=== PATIENT | male | born 1975 | race Hispanic/Latino ===

== ENCOUNTER 2017-09-13 12:22 | Emergency (ER) | payer MEDICARE ==
[2017-09-13] MEDS ORDERED: HALDOL IM PRN (13:48)
[2017-09-13] MEDS ORDERED: ATIVAN IM PRN (13:48)
[2017-09-13] MEDS ORDERED: NACL 0.9% 1000 ML 1,000 ML IV ONE (13:48)
--- NOTE | 2017-09-13 13:52 | Emergency Department Report ---
ED General Adult HPI - General Chief complaint: Medical Clearance Stated complaint: MENTAL EVAL Time Seen by Provider: 09/13/17 13:24 Source: patient, police, RN notes reviewed Mode of arrival: Ambulatory Limitations: Other (patient is disorganized and is actively psychotic) - History of Present Illness Initial comments: This is a 41-year-old male who was unknown to this provider previously, who is brought to the hospital by local Police Department for medical clearance. Patient has a history of psychiatric disease. The patient has no complaints at this time. As per Police Department, the patient was aggressive, physically combative, and had to be tased 2. The patient denies headache, neck pain, chest pain, abdominal pain, shortness of breath, urinary symptoms, he denies homicidality and suicidality, and he reports he is up-to-date with his tetanus vaccinations. The patient has no complaints at this time, and therefore indicates no radiation, no qualitative nature of symptoms, and no exacerbating or relieving factors. As per verbal report from local Police Department, the patient did not fall or hit his head. -: unknown Quality: other (per hpi) Consistency: other (per hpi) Improves with: other (per hpi) Worsens with: other (per hpi) Associated Symptoms: other (per hpi). denies: confusion, chest pain, cough, diaphoresis, fever/chills, headaches, loss of appetite, malaise, nausea/vomiting , rash, seizure, shortness of breath, syncope, weakness - Related Data Home Medications Medication Instructions Recorded Confirmed Last Taken Aspirin [Aspirin TAB] 1 PO DAILY 12/17/14 12/17/14 Unknown Previous Rx's Medication Instructions Recorded Last Taken Type Amoxicillin/K Clav Tab [Augmentin 1 tab PO Q12HR #20 tab 12/26/14 Unknown Rx 875 mg] Ibuprofen [Motrin] 600 mg PO Q8H PRN #30 tablet 12/26/14 Unknown Rx Prednisone [predniSONE 10 mg 10 mg PO .TAPER #1 tab.ds.pk 12/26/14 Unknown Rx (6-Day Pack, 21 Tabs)] Allergies Allergy/AdvReac Type Severity Reaction Status Date / Time No Known Allergies Allergy Unverified 12/26/14 12:02 ED Review of Systems ROS: Stated complaint: MENTAL EVAL Other details as noted in HPI Comment: All other systems reviewed and negative ED Past Medical Hx - Past Medical History Hx Hypertension: Yes Hx Psychiatric Treatment: Yes (PTSD) - Surgical History Additional Surgical History: L eye. tonsillectomy - Social History Smoking Status: Current Every Day Smoker Substance Use Type: Marijuana, Methamphetamines - Medications Home Medications: Home Medications Medication Instructions Recorded Confirmed Last Taken Type Aspirin [Aspirin TAB] 1 PO DAILY 12/17/14 12/17/14 Unknown History Amoxicillin/K Clav Tab [Augmentin 1 tab PO Q12HR #20 tab 12/26/14 Unknown Rx 875 mg] Ibuprofen [Motrin] 600 mg PO Q8H PRN #30 tablet 12/26/14 Unknown Rx Prednisone [predniSONE 10 mg 10 mg PO .TAPER #1 tab.ds.pk 12/26/14 Unknown Rx (6-Day Pack, 21 Tabs)] ED Physical Exam - General Limitations: Other (patient is actively psychotic) General appearance: alert, in no apparent distress - Head Head exam: Present: atraumatic, normocephalic - Eye Eye exam: Present: normal appearance, PERRL, EOMI. Absent: nystagmus - ENT ENT exam: Present: normal exam, normal orophraynx, mucous membranes moist, normal external ear exam - Neck Neck exam: Present: normal inspection. Absent: tenderness, meningismus - Respiratory Respiratory exam: Present: normal lung sounds bilaterally. Absent: respiratory distress - Cardiovascular Cardiovascular Exam: Present: normal rhythm, tachycardia, normal heart sounds. Absent: systolic murmur, diastolic murmur, rubs, gallop - GI/Abdominal GI/Abdominal exam: Present: soft, normal bowel sounds. Absent: distended, tenderness, guarding, rebound, rigid, pulsatile mass - Rectal Rectal exam: Present: deferred - Extremities Exam Extremities exam: Present: normal inspection, full ROM, normal capillary refill , other (there is no palpable cord. There is negative Homans sign. The compartments are soft. There is no clonus. It is no hyperreflexia.). Absent: tenderness, pedal edema, joint swelling, calf tenderness - Back Exam Back exam: Present: normal inspection, full ROM. Absent: tenderness, CVA tenderness (R), paraspinal tenderness, vertebral tenderness - Neurological Exam Neurological exam: Present: alert, oriented X3, CN II-XII intact, other ( Extraocular movements intact. Tongue midline. No facial droop. Facial sensation intact to light touch in the V1, V2, V3 distribution bilaterally. 5 and 5 strength in 4 extremities.. Sensation is intact to light touch in 4 extremities.). Absent: motor sensory deficit - Psychiatric Psychiatric exam: Present: anxious. Absent: homicidal ideation, suicidal ideation - Skin Skin exam: Present: warm, dry, intact, normal color. Absent: rash ED Course Vital Signs 09/13/17 09/13/17 09/13/17 13:10 13:30 14:00 Temperature 97.7 F Pulse Rate 113 H 109 H 104 H Respiratory 18 26 H 19 Rate Blood Pressure 153/91 Blood Pressure 153/91 [Right] O2 Sat by Pulse 98 97 98 Oximetry 09/13/17 09/13/17 09/13/17 14:06 14:30 15:00 Temperature 99.2 F Pulse Rate 102 H 94 H Respiratory 29 H Rate Blood Pressure 159/93 141/79 Blood Pressure [Right] O2 Sat by Pulse 98 98 Oximetry ED Medical Decision Making - Lab Data Result diagrams: 09/13/17 13:41 09/13/17 13:41 Vital Signs 09/13/17 09/13/17 09/13/17 13:10 13:30 14:00 Temperature 97.7 F Pulse Rate 113 H 109 H 104 H Respiratory 18 26 H 19 Rate Blood Pressure 153/91 Blood Pressure 153/91 [Right] O2 Sat by Pulse 98 97 98 Oximetry 09/13/17 09/13/17 09/13/17 14:06 14:30 15:00 Temperature 99.2 F Pulse Rate 102 H 94 H Respiratory 29 H Rate Blood Pressure 159/93 141/79 Blood Pressure [Right] O2 Sat by Pulse 98 98 Oximetry Lab Results 09/13/17 09/13/17 09/13/17 Range/Units 13:41 13:41 13:41 WBC (4.5-11.0) K/mm3 RBC (3.65-5.03) M/mm3 Hgb (11.8-15.2) gm/dl Hct (35.5-45.6) % MCV (84-94) fl MCH (28-32) pg MCHC (32-34) % RDW (13.2-15.2) % Plt Count (140-440) K/mm3 Sodium 141 (137-145) mmol/L Potassium 4.4 (3.6-5.0) mmol/L Chloride 101.1 (98-107) mmol/L Carbon Dioxide 26 (22-30) mmol/L Anion Gap 18 mmol/L BUN 10 (9-20) mg/dL Creatinine 1.1 (0.8-1.5) mg/dL Estimated GFR > 60 ml/min BUN/Creatinine Ratio 9 % Glucose 117 H (75-100) mg/dL Calcium 9.8 (8.4-10.2) mg/dL Total Bilirubin 0.20 (0.1-1.2) mg/dL AST 28 (5-40) units/L ALT 22 (7-56) units/L Alkaline Phosphatase 118 (35-129) units/L Total Creatine Kinase (55-170) units/L Total Protein 8.0 (6.3-8.2) g/dL Albumin 4.2 (3.9-5) g/dL Albumin/Globulin Ratio 1.1 % Salicylates < 0.3 L (2.8-20.0) mg/dL Acetaminophen < 5.0 L (10.0-30.0) ug/mL Plasma/Serum Alcohol (0-0.07) % 09/13/17 09/13/17 09/13/17 Range/Units 13:41 13:41 13:41 WBC 13.3 H (4.5-11.0) K/mm3 RBC 5.19 H (3.65-5.03) M/mm3 Hgb 15.2 (11.8-15.2) gm/dl Hct 45.5 (35.5-45.6) % MCV 88 (84-94) fl MCH 29 (28-32) pg MCHC 33 (32-34) % RDW 14.4 (13.2-15.2) % Plt Count 292 (140-440) K/mm3 Sodium (137-145) mmol/L Potassium (3.6-5.0) mmol/L Chloride (98-107) mmol/L Carbon Dioxide (22-30) mmol/L Anion Gap mmol/L BUN (9-20) mg/dL Creatinine (0.8-1.5) mg/dL Estimated GFR ml/min BUN/Creatinine Ratio % Glucose (75-100) mg/dL Calcium (8.4-10.2) mg/dL Total Bilirubin (0.1-1.2) mg/dL AST (5-40) units/L ALT (7-56) units/L Alkaline Phosphatase (35-129) units/L Total Creatine Kinase 191 H (55-170) units/L Total Protein (6.3-8.2) g/dL Albumin (3.9-5) g/dL Albumin/Globulin Ratio % Salicylates (2.8-20.0) mg/dL Acetaminophen (10.0-30.0) ug/mL Plasma/Serum Alcohol < 0.01 (0-0.07) % - EKG Data -: EKG Interpreted by Ca EKG shows normal: sinus rhythm Rate: tachycardia - EKG Data 09/13/17 16:15 Sinus tachycardia, 114 beats per minute, left axis deviation, low voltage, QTC prolonged, abnormal EKG, not a STEMI. - Medical Decision Making Differential diagnosis, including but not limited to: Psychosis, medical clearance for psychiatric placement Assessment and plan: 41-year-old male who is brought to the hospital by Police Department for decompensated psychosis. He is afebrile, his tachycardia has resolved. His leukocytosis is appreciated, however his history and physical examination are not consistent with an acute bacterial infection. His tachycardia resolved, he has been pleasant, calm and cooperative, without any neck pain or neck stiffness. He is alert to name, month, year and location. Urinalysis is pending at this time, he is placed on a 1013, his serum toxicology studies were unremarkable, creatinine kinase was unremarkable. At this point in time, the patient is medically stable for psychiatric placement, evaluation and consultation at this time. Critical care attestation.: If time is entered above; I have spent that time in minutes in the direct care of this critically ill patient, excluding procedure time. ED Disposition Clinical Impression: Medical clearance for psychiatric admission Disposition: [id number] PSY HOSP/PSY UNIT Is pt being admited?: No Does the pt Need Aspirin: No Condition: Good
[2017-09-13 14:04] LABS: Hematocrit 45.5 % (35.5-45.6); Hemoglobin 15.2 gm/dl (11.8-15.2); Mean Corpuscular HGB Conc 33 % (32-34); Mean Corpuscular Hemoglobin 29 pg (28-32); Mean Corpuscular Volume 88 fl (84-94); Platelet Count 292 K/mm3 (140-440); Red Blood Count 5.19 M/mm3 (3.65-5.03); Red Cell Distribution Width 14.4 % (13.2-15.2)
[2017-09-13 14:23] LABS: Alanine Aminotransferase 22 units/L (7-56); Albumin 4.2 g/dL (3.9-5); BUN/Creatinine Ratio 9; Blood Urea Nitrogen 10 mg/dL (9-20); Calcium 9.8 mg/dL (8.4-10.2); Hemolysis Index 8
[2017-09-14 10:08] LABS: Bilirubin,Urine NEG (Negative); Blood,Urine SM (Negative); Color,Urine Yellow (Yellow); Mucus,Urine FEW /HPF; Protein,Urine <15 mg/dL mg/dL (Negative); Urobilinogen,Urine < 2.0 mg/dL (<2.0)
[2017-09-14 10:13] LABS: Benzodiazepines Screen,Urine PRESUMPTIVE NEGATIVE; Cannabinoid Screen,Urine PRESUMPTIVE NEGATIVE; Cocaine Screen,Urine PRESUMPTIVE NEGATIVE; Methadone Screen,Urine PRESUMPTIVE NEGATIVE; Opiate Screen,Urine PRESUMPTIVE NEGATIVE
[2017-09-14 10:27] LABS: Amphetamine Screen,Urine PRESUMPTIVE POSITIVE
--- NOTE | 2017-09-14 13:34 | Consultation ---
History of Present Illness - Reason for Consult Consult date: 09/14/17 Reason for consult: Mental Health Evaluation Requesting physician: TERESITA FERNANDES - Chief Complaint Chief complaint: "I don't know why I'm here' - History of Present Psychiatric Illness 41 y.o. white male presenting to the ER for acute psychosis per the local police. Today the patient is clam, but tangent during the assessment. He could not explain his actions prior to his admission to the ER. He was asked about amphetamine use, he stated, "what, what" several times. His answers to questions were not logical. He had loose associations throughout the interview. He did acknowledge that "someone or something" is after him. He isn't a good historian at this time. Medications and Allergies Allergies Allergy/AdvReac Type Severity Reaction Status Date / Time No Known Allergies Allergy Unverified 12/26/14 12:02 Home Medications Medication Instructions Recorded Confirmed Last Taken Type Aspirin [Aspirin TAB] 1 PO DAILY 12/17/14 12/17/14 Unknown History Amoxicillin/K Clav Tab [Augmentin 1 tab PO Q12HR #20 tab 12/26/14 Unknown Rx 875 mg] Ibuprofen [Motrin] 600 mg PO Q8H PRN #30 tablet 12/26/14 Unknown Rx Prednisone [predniSONE 10 mg 10 mg PO .TAPER #1 tab.ds.pk 12/26/14 Unknown Rx (6-Day Pack, 21 Tabs)] Active Meds: Active Medications Haloperidol Lactate (Haldol) 5 mg IM Q6HR PRN PRN Reason: Agitation Lorazepam (Ativan) 2 mg IM Q4HR PRN PRN Reason: Agitation Past psychiatric history - Past Medical History Past Medical History: hypertension Past Surgical History: tonsillectomy - past Psychiatric treatment and history psychiatric treatment history: Several inpatient psy settings. He cannot confirm or deny a fam psy hx. - Social History Social history: Lives alone Mental Status Exam - Vital signs Last Vital Signs Temp 98 F 09/13/17 19:42 Pulse 85 09/13/17 19:42 Resp 15 09/14/17 11:54 BP 156/98 09/13/17 19:42 Pulse Ox 95 09/14/17 11:54 - Exam Narrative exam: MSE: Appearance: calm Behavior: regular eye contact Speech: regular rate and tone Mood: "okay" Affect: congruent to mood Thought Process: tangential Thought Content: denies SI/HI's and VH's, would not confirm or deny AH's, delusional, paranoid Motor Activity: ambulatory Cognition: A/O x 3 Insight: poor Judgment: poor Results Result Diagrams: 09/13/17 13:41 09/13/17 13:41 Abnormal lab results 09/13/17 09/13/17 09/13/17 Range/Units 13:41 13:41 13:41 WBC (4.5-11.0) K/mm3 RBC (3.65-5.03) M/mm3 Glucose 117 H (75-100) mg/dL Total Creatine Kinase (55-170) units/L Salicylates < 0.3 L (2.8-20.0) mg/dL Acetaminophen < 5.0 L (10.0-30.0) ug/mL 09/13/17 09/13/17 Range/Units 13:41 13:41 WBC 13.3 H (4.5-11.0) K/mm3 RBC 5.19 H (3.65-5.03) M/mm3 Glucose (75-100) mg/dL Total Creatine Kinase 191 H (55-170) units/L Salicylates (2.8-20.0) mg/dL Acetaminophen (10.0-30.0) ug/mL All other labs normal. Assessment and Plan Assessment and plan: Impression: Unspecified Psychosis. Substance Use DO (amphetamines). Today the patient is clam, but tangent during the assessment. DDx: R/O Schizophrenia Paranoid Type, R/O Substance Induced Psychosis Recommendation/Plan: Continue 1013 with placement to inpatient psy services. Start Zyprexa 5 mg PO HS for psychosis. Discussed possible metabolic side effects of Zyprexa with patient. The patient's triglycerides are elevated and the ER staff was informed. The benefit of Zyprexa at this time outweigh the risk because the patient is psychotic.
[2017-09-14 14:45] LABS: Chol/HDL Ratio 5.62 %; HDL Cholesterol 35 mg/dL (40-59); LDL Cholesterol,Direct TNR mg/dL (50-130)
[2017-09-14] MEDS ORDERED: HABITROL TD ONE (21:16)
--- NOTE | 2017-09-15 21:41 | Progress Note ---
Subjective - Reason for Consult Consult date: 09/15/17 Reason for consult: follow up - Chief Complaint Chief complaint: "When am I going?" 41 y.o. white male presenting to the ER for acute psychosis per the local police. He asked when he is going to a hospital. He fell asleep when questions were asked. He states he should go to [place] [facility]. Unable to obtain further information. Mental Status Exam - Vital signs Last Vital Signs Temp 97.6 F 09/15/17 09:00 Pulse 70 09/15/17 09:00 Resp 20 09/15/17 09:00 BP 141/83 09/15/17 09:00 Pulse Ox 96 09/15/17 09:00 - Exam Narrative exam: MSE: Appearance: calm Behavior: intermittently falling asleep Speech: regular rate and tone Mood: "okay" Affect: congruent to mood Thought Process: limited in scope/logical Thought Content: unable to assess Motor Activity: ambulatory Cognition: A/O x 3 Insight: poor Judgment: poor Assessment and Plan Impression: Unspecified Psychosis. Substance Use DO (amphetamines). Today the patient is calm but offers minimal information. DDx: R/O Schizophrenia Paranoid Type, R/O Substance Induced Psychosis Recommendation/Plan: Continue 1013 with placement to inpatient psy services. Continue Zyprexa 5 mg PO HS for psychosis. Discussed possible metabolic side effects of Zyprexa with patient. The patient's triglycerides are elevated and the ER staff was informed. The benefit of Zyprexa at this time outweighs the risk because the patient is psychotic.
--- NOTE | 2017-09-16 23:56 | Progress Note ---
Subjective - Reason for Consult Consult date: 09/16/17 Reason for consult: follow up - Chief Complaint Chief complaint: "The meth antman..." 41 y.o. white male presenting to the ER for acute psychosis per the local police. He states he should go home. When asked how he is doing, he began talking about [employer] robot, the meth antman, and having a device inside of him. He was unable to be redirected. Mental Status Exam - Vital signs Last Vital Signs Temp 98.2 F 09/16/17 10:00 Pulse 82 09/16/17 10:00 Resp 18 09/16/17 10:00 BP 157/92 09/16/17 10:00 Pulse Ox 100 09/16/17 10:00 - Exam Narrative exam: MSE: Appearance: hospital gown Behavior: needed redirection Speech: rapid Mood: indifferent Affect: congruent to mood Thought Process: disorganized Thought Content: bizarre delusions Motor Activity: ambulatory Cognition: A/O x 3 Insight: poor Judgment: poor Assessment and Plan Impression: Unspecified Psychosis. Substance Use DO (amphetamines). Today he is disorganized and delusional. DDx: R/O Schizophrenia Paranoid Type, R/O Substance Induced Psychosis Recommendation/Plan: Continue 1013 with placement to inpatient psy services. Continue Zyprexa 5 mg PO HS for psychosis. Discussed possible metabolic side effects of Zyprexa with patient. The patient's triglycerides are elevated and the ER staff was informed. The benefit of Zyprexa at this time outweighs the risk because the patient is psychotic.
[2017-09-17 02:01] VITALS: BP 132/98
== END 2017-09-17 01:30 ==
LOC: EDUNIT# → EEVIPCON 12:22 → ED 12:22
DX: F29 Unspecified psychosis not due to a substance or known physiological condition (principal); I10 Essential (primary) hypertension; F17.200 Nicotine dependence, unspecified, uncomplicated; F12.10 Cannabis abuse, uncomplicated; F15.10 Other stimulant abuse, uncomplicated; Z79.82 Long term (current) use of aspirin
CPT/HCPCS: 36415; 80053; 80061; 80307; 81001; 82550; 83036; 85027; 93005; 93010; 96372; 99285; G0480; J1630; J2060; J7030; 80320